=== PATIENT | male | born 1980 | race Caucasian/White ===

== ENCOUNTER 2018-09-15 03:07 | Emergency (ER) | payer OTHER ==
[~2018-09-15] VITALS: Ht 167.6 cm; Wt 79.4 kg
[2018-09-15 03:09] VITALS: Ht 167.6 cm; Wt 79.4 kg
[2018-09-15 04:12] VITALS: BP 156/91
== END 2018-09-15 04:13 | disposition home or self-care (01) ==
LOC: ED 03:07
DX: R10.11 Right upper quadrant pain (principal); R11.0 Nausea
CPT/HCPCS: J1885